=== PATIENT | male | born 1955 | race Two or more races ===

== ENCOUNTER 2023-03-27 00:09 | Inpatient (IN) | payer MEDICARE, MEDICAID ==
[~2023-03-27] VITALS: Ht 167.6 cm; Wt 61.3 kg
[2023-03-27 01:19] LABS: Hematocrit 37.4 % (41.0-53.0); INR 1.5 (0.9-1.15); Mean Corpuscular Hemoglobin 35.8 pg (28.0-32.0); Mean Corpuscular Hgb Conc. 34.7 g/dL (32.0-36.0); Mean Corpuscular Volume 103.2 fL (80.0-100.0); Partial Thromboplastin Time 33.6 SEC (24.5-34.5); Red Blood Cells 3.62 10^6/uL (4.5-5.90); Red Cell Distribution Width 14.7 % (11.8-14.3); White Blood Cell 10.8 10^3/uL (4.4-10.8)
[2023-03-27 01:20] LABS: Albumin 2.1 g/dL (3.4-5.0); BUN/Creatinine Ratio 9.9 (10.0-20.0); Calcium 8.1 mg/dL (8.5-10.1); Potassium 4.6 mmol/L (3.5-5.1)
[2023-03-27 01:23] LABS: Lactic Acid w/Reflex 5.7 mmol/L (0.4-2.0)
[2023-03-27 01:33] LABS: Basophils % (manual) 0 (0.0-2.0); Blast Cells 0; Eosinophils % (manual) 0 (0-7); Metamyelocytes % 0; Myelocytes % 0; Promyelocytes % 0; Reactive Lymphocytes 0
[2023-03-27 02:44] LABS: Band Neutrophils % (manual) 12; Lymphocytes % (manual) 2 (10.0-50.0); Monocytes % (manual) 2 (0-12)
[2023-03-27] MEDS ORDERED: LIDOCAINE 1% HCL (LOCAL ANESTH.) INJ 20ML MDV ONE (04:21)
[2023-03-27] MEDS ORDERED: metroNIDAZOLE 500MG/100ML 100 ML IV ONE (05:15)
[2023-03-27] MEDS ORDERED: levoFLOXacin 750MG 150 ML IV ONE (05:15)
[2023-03-27] MEDS ORDERED: LACTATED RINGER'S 2,000 ML IV ONE (05:15)
[2023-03-27 11:28] LABS: Urine Bacteria FEW /hpf (None Seen); Urine Blood 3+ /uL (Negative); Urine Hyaline Cast FEW /lpf (0 - 2); Urine Mucus FEW (None Seen); Urine Specific Gravity 1.021 (1.001-1.035); Urine WBC 17 /hpf (0 - 3)
[2023-03-27] MEDS ORDERED: SODIUM CHLORIDE 0.9% 1,000 ML IV SCH ×2 (13:30→19:45)
[2023-03-27] MEDS ORDERED: ONDANSETRON HCL 4 MG/2 ML VIAL IV PRN (13:30)
[2023-03-27] MEDS ORDERED: DOCUSATE SOD 100 MG CAP PO PRN (13:30)
[2023-03-27] MEDS ORDERED: DEXTROSE (50%) 50ML SYRG IV PRN (13:30)
[2023-03-27] MEDS ORDERED: MORPHINE SULFATE INJ 2 MG/ml SYRG IV PRN (13:30)
[2023-03-27] MEDS ORDERED: TAMS0.4C36 PO (14:49)
[2023-03-27] MEDS ORDERED: FUR20T (14:49)
[2023-03-27] MEDS ORDERED: SPIR50TA5 PO (14:49)
[2023-03-27] MEDS ORDERED: LACT10SO3 PO (14:49)
[2023-03-27 15:06] LABS: Lactic Acid w/Reflex 5.7 mmol/L (0.4-2.0)
[2023-03-27] MEDS ORDERED: ACCU-CHEK COMFORT CURVE STRIP VI SCH (17:00)
[2023-03-27] MEDS: InsuLIN REG 1unit/0.01ml Soln (100units/ml) SC SCH ×2 (17:09→21:35)
[2023-03-27] MEDS: SODIUM CHLORIDE 0.9% 1,000 ML IV SCH (20:00)
[2023-03-27] MEDS ORDERED: LACTULOSE 20Gm/30ML SOLN PO PRN (20:15)
[2023-03-27] MEDS: ALBUMIN 25% 100 ML IV SCH ×2 (21:33→23:24)
[2023-03-27] MEDS: ACCU-CHEK COMFORT CURVE STRIP VI SCH (21:35)
[2023-03-27] MEDS ORDERED: MELATONIN 5 MG TAB PO ONE (23:30)
[2023-03-28] MEDS: ACCU-CHEK COMFORT CURVE STRIP VI SCH ×5 (00:44→23:33)
[2023-03-28 03:46] VITALS: BP 94/55
[2023-03-28 05:00] VITALS: BP 94/55
[2023-03-28] MEDS: InsuLIN REG 1unit/0.01ml Soln (100units/ml) SC SCH ×4 (05:56→16:59)
[2023-03-28 07:03] LABS: Basophils # (auto) 0 10 ^3/uL (0-0.2); Basophils % (auto) 0.2 % (0.0-2.0); Eosinophils # (auto) 0 10 ^3/uL (0-0.8); Hemoglobin 9.7 g/dL (13.5-17.5); Lymphocytes # (auto) 0.3 10 ^3/uL (0.4-5.4); Monocytes # (auto) 0.3 10 ^3/uL (0-1.3); Neutrophils # (auto) 2.9 10 ^3/uL (1.6-8.6); Nucleated Red Blood Cells % 0.1 %; White Blood Cell 3.6 10^3/uL (4.4-10.8)
[2023-03-28 07:06] LABS: Eosinophils % (auto) 1.2 % (0.0-7.0); Hematocrit 27.1 % (41.0-53.0); Mean Corpuscular Hemoglobin 36.4 pg (28.0-32.0); Mean Corpuscular Hgb Conc. 35.9 g/dL (32.0-36.0); Mean Corpuscular Volume 101.3 fL (80.0-100.0); Monocytes % (auto) 8.8 % (0.0-12.0); Neutrophils % (auto) 80.8 % (37.0-80.0); Red Blood Cells 2.67 10^6/uL (4.5-5.90); Red Cell Distribution Width 14.4 % (11.8-14.3)
[2023-03-28 07:19] LABS: Albumin 2.4 g/dL (3.4-5.0); BUN/Creatinine Ratio 21.5 (10.0-20.0); Calcium 7.6 mg/dL (8.5-10.1); Potassium 3.6 mmol/L (3.5-5.1)
[2023-03-28 07:21] LABS: Total Protein 5.7 g/dL (6.4-8.2)
[2023-03-28 08:57] VITALS: BP 99/57
[2023-03-28] MEDS: TAMSULOSIN HYDROCHLORIDE 0.4 MG CAP PO SCH (10:43)
[2023-03-28] MEDS: SODIUM CHLORIDE 0.9% 1,000 ML IV SCH ×2 (10:43→14:42)
[2023-03-28] MEDS: levoFLOXacin 500MG 100 ML IV SCH (10:44)
[2023-03-28 13:00] VITALS: BP 96/50
[2023-03-28 17:00] VITALS: BP 86/47
[2023-03-28 22:00] VITALS: BP 96/51
[2023-03-29 05:00] VITALS: BP 88/51
[2023-03-29] MEDS: ACCU-CHEK COMFORT CURVE STRIP VI SCH ×3 (06:21→11:40)
[2023-03-29] MEDS: InsuLIN REG 1unit/0.01ml Soln (100units/ml) SC SCH ×4 (06:37→21:26)
[2023-03-29 08:00] VITALS: BP 100/65
[2023-03-29 08:50] VITALS: BP 100/65
[2023-03-29] MEDS: levoFLOXacin 500MG 100 ML IV SCH (10:36)
[2023-03-29] MEDS: TAMSULOSIN HYDROCHLORIDE 0.4 MG CAP PO SCH (10:36)
[2023-03-29 13:00] VITALS: BP 101/64
[2023-03-29] MEDS: SODIUM CHLORIDE 0.9% 1,000 ML IV SCH (14:54)
[2023-03-29 17:00] VITALS: BP 92/56
[2023-03-29 22:00] VITALS: BP 92/56
[2023-03-30 04:38] VITALS: BP 95/58
[2023-03-30] MEDS: SODIUM CHLORIDE 0.9% 1,000 ML IV SCH ×2 (05:12→16:41)
[2023-03-30] MEDS: InsuLIN REG 1unit/0.01ml Soln (100units/ml) SC SCH ×4 (06:26→21:23)
[2023-03-30] MEDS: ACCU-CHEK COMFORT CURVE STRIP VI SCH ×4 (06:26→21:24)
[2023-03-30 08:00] VITALS: BP 90/57
[2023-03-30] MEDS: TAMSULOSIN HYDROCHLORIDE 0.4 MG CAP PO SCH (08:46)
[2023-03-30] MEDS: levoFLOXacin 500MG 100 ML IV SCH (08:46)
[2023-03-30 09:00] VITALS: BP 90/57
[2023-03-30] MEDS ORDERED: PANTOPRAZOLE 40 MG TAB PO ONE (11:15)
[2023-03-30 12:34] LABS: Calcium 7.3 mg/dL (8.5-10.1); Potassium 3.9 mmol/L (3.5-5.1)
[2023-03-30 12:37] LABS: BUN/Creatinine Ratio 18.2 (10.0-20.0)
[2023-03-30 12:43] LABS: Bilirubin, Total 2.2 mg/dL (0.2-1.0); Total Protein 5.5 g/dL (6.4-8.2)
[2023-03-30 16:56] VITALS: BP 91/52
[2023-03-30 20:00] VITALS: BP 97/59
[2023-03-30 22:00] VITALS: BP 97/59
[2023-03-31] MEDS: SODIUM CHLORIDE 0.9% 1,000 ML IV SCH (03:28)
[2023-03-31 05:00] VITALS: BP 100/55
[2023-03-31] MEDS: InsuLIN REG 1unit/0.01ml Soln (100units/ml) SC SCH ×2 (06:19→11:54)
[2023-03-31] MEDS: ACCU-CHEK COMFORT CURVE STRIP VI SCH ×2 (06:20→11:54)
[2023-03-31] MEDS: levoFLOXacin 500MG 100 ML IV SCH (08:44)
[2023-03-31] MEDS: TAMSULOSIN HYDROCHLORIDE 0.4 MG CAP PO SCH (08:44)
[2023-03-31 09:00] VITALS: BP 100/53
[2023-03-31] MEDS ORDERED: PANTOPRAZOLE 40 MG TAB PO SCH (10:00)
[2023-03-31 13:00] VITALS: BP 86/52
[2023-03-31 14:36] VITALS: BP 100/53
== END 2023-03-31 15:30 | disposition home or self-care (01) | DRG 871 ==
LOC: ER 00:09 → EDBD 00:09 → TELE 13:29 → TELE-WESTW 03-28 03:00
PROVIDERS: ADMIT Nurse Practitioner Family; ATTEND Family Medicine
PROC: 0HQ0XZZ Repair Scalp Skin, External Approach (ICD-10-PCS; principal; 2023-03-27)
DX: A41.9 Sepsis, unspecified organism (principal); E43 Unspecified severe protein-calorie malnutrition; N30.00 Acute cystitis without hematuria; E87.1 Hypo-osmolality and hyponatremia; D61.818 Other pancytopenia; D68.59 Other primary thrombophilia; E87.20 Acidosis, unspecified; K76.82 Hepatic encephalopathy; K74.60 Unspecified cirrhosis of liver; K52.9 Noninfective gastroenteritis and colitis, unspecified; F10.10 Alcohol abuse, uncomplicated; S01.01XA Laceration without foreign body of scalp, initial encounter; Y93.01 Activity, walking, marching and hiking; E11.22 Type 2 diabetes mellitus with diabetic chronic kidney disease; E88.09 Other disorders of plasma-protein metabolism, not elsewhere classified; N18.9 Chronic kidney disease, unspecified; Z76.82 Awaiting organ transplant status; Z82.49 Family history of ischemic heart disease and other diseases of the circulatory system; W01.0XXA Fall on same level from slipping, tripping and stumbling without subsequent striking against object, initial encounter; Z68.21 Body mass index [BMI] 21.0-21.9, adult; Y92.098 Other place in other non-institutional residence as the place of occurrence of the external cause; Y99.8 Other external cause status
CPT/HCPCS: 12002; 36415; 70450; 71250; 72125; 74176; 80053; 81001; 82140; 82962; 83036; 83605; 83690; 85007; 85025; 85027; 85610; 85730; 87040; 87086; 96365; 96367; 97110; 97116; 97163; 97530; G0378; J1815; J1956; J2001; J3490; P9047